=== PATIENT | male | born 1980 | race Caucasian/White ===

== ENCOUNTER 2023-10-27 16:14 | Emergency (ER) | payer OTHER, SELFPAY ==
--- NOTE | ~2023-10-27 | CT_ITS ---
EXAMINATION: CT ABDOMEN AND PELVIS WITH CONTRAST CLINICAL INFORMATION: Pain. COMPARISON: 10/20/2014 TECHNIQUE: Multidetector volumetric images were obtained from the superior aspect of the liver through the pubic symphysis following administration 85 mL of Omnipaque 350 intravenous contrast. Sagittal and coronal reformatted images were obtained on the technologist's workstation. Oral contrast: No This CT examination was performed using dose optimization techniques as appropriate, variously including the following: *Automated exposure control *Adjustment of mA and/or kV according to patient size (this includes techniques or standardized protocols for targeted exams where dose is matched to indication/reason for exam; i.e. extremities or head) *Use of iterative reconstruction technique DLP: 568 mGy-cm FINDINGS: LUNG BASES: The visualized lung bases are unremarkable. LIVER, GALLBLADDER, AND BILIARY TREE: There are scattered hepatic hypodensities measuring up to 2.3 cm left lobe the liver some too small to characterize but all likely to represent cysts. There is no intrahepatic biliary duct dilatation. The gallbladder is unremarkable with no evidence of radiopaque gallstones, gallbladder wall thickening, or obvious pericholecystic inflammatory changes. PANCREAS: Unremarkable. SPLEEN: Unremarkable. ADRENAL GLANDS: Unremarkable. KIDNEYS AND URETERS: The kidneys are normal in size, shape, and attenuation. No hydronephrosis, hydroureter, or calculi seen. No perinephric stranding. There is a 2.5 cm cyst mid to lower pole left kidney. BLADDER: Unremarkable. GASTROINTESTINAL TRACT: There is distal sigmoid and rectal thickening. The appendix is visualized and is within normal limits. ABDOMINAL WALL: No significant hernia is appreciated. LYMPH NODES: Normal. VASCULAR: Unremarkable. PELVIC VISCERA: Unremarkable. OSSEOUS STRUCTURES: Unremarkable. CT/CT abdomen pelvis w IV con IMPRESSION: 1. Thickening of the distal sigmoid and rectal wall which may be consistent with proctocolitis. 2. Scattered hepatic hypodensities some too small to characterize but all likely to represent cysts. 3. 2.5 cm cyst mid to lower pole left kidney. Fleischner guidelines were followed.
[2023-10-27 17:19] VITALS: BP 150/103; PULSE 93; RESP 16; TEMP 36.7; O2SAT 98; BMI 30.3
[2023-10-27 17:44] LABS: MANUAL DIFF FLAG NO
[2023-10-27 17:46] LABS: Basophils Absolute Auto 0.1 X10*3/uL (0.0-0.2); Basophils Percent Auto 0.7 % (0-2); Eosinophils Absolute Auto 0.4 X10*3/uL (0.0-0.4); Hematocrit 45.6 % (42.0-52.0); Hemoglobin 15.5 g/dl (14.0-18.0); Imm Gran Abs Auto 0.03 X10*3/uL (0.00-0.03); Imm Gran Pct Auto 0.4 % (0.0-0.4); Lymphocytes Absolute Auto 1.4 X10*3/uL (1.2-4.9); Lymphocytes Percent Auto 16.7 % (20-40); Mean Corpuscular Hemoglobin 29.8 pg (27.0-33.0); Mean Corpuscular Volume 87.5 fL (80.0-98.0); Mean Platelet Volume 9.7 fL (9.4-12.4); Monocytes Absolute Auto 0.4 X10*3/uL (0.1-1.2); Monocytes Percent Auto 4.5 % (2-11); Neutrophils Percent Auto 72.7 % (45-73); Platelet Count 306 X10*3/uL (160-400); Red Blood Count 5.21 X10*6/uL (4.60-5.80); Red Cell Distribution Width 13.2 % (11.0-16.0); White Blood Count 8.3 X10*3/uL (4.8-10.8)
[2023-10-27 18:01] LABS: Alanine Aminotransferase 21 U/L (0-40); Albumin Level 4.4 g/dL (3.5-5.0); Alkaline Phosphatase 110 U/L (39-117); Anion Gap 13 (12-20); Aspartate Amino Transferase 28 U/L (5-37); Bilirubin Total 0.5 mg/dL (0.0-1.0); Blood Urea Nitrogen 13 mg/dL (9-16); Calcium 9.5 mg/dL (8.4-10.2); Carbon Dioxide 27 mmol/L (22-29); Chloride 105 mmol/L (96-108); Creatinine Clr Calc Pharmacy 102.7; Estimated Glomerular Filt Rate > 60; Glucose Random 97 mg/dL (60-115); Lipase 34 U/L (8-78); Potassium 3.6 mmol/L (3.3-5.1); Sodium 141 mmol/L (135-145); Total Protein 7.3 g/dL (6.5-8.0)
--- NOTE | 2023-10-27 19:17 | ED.GENADULT ---
HPI - General Adult General Chief complaint: General Medical Stated complaint: lower abd pain, bloody stools Time Seen by Provider: 10/27/23 23:12 Source: patient Mode of arrival: ambulatory History of Present Illness ED Provider: Dr. Navarrete [facility] narrative: 43-year-old male with history of anxiety and depression presents with 1 week of experiencing abdominal discomfort in the morning and then having leakage mucousy blood-tinged discharge from the rectum while passing flatus in the shower and then reports that he has noticed it mixed with his stool and seems to decreased throughout the day. He denies any history of constipation or food allergies and states that this is never happened before. He denies any personal history of colon disorders and denies any family history of inflammatory bowel disease or colon CA. patient then also began developing left lower quadrant discomfort approximately 2 days ago, none of the symptoms have been associated with any fever, chills, nausea or vomiting. Related Data Previous Rx's ?Medication ?Instructions ?Recorded amoxicillin 875 mg-potassium 1 tab PO BID 10 days #20 tabs 10/28/23 clavulanate 125 mg tablet Allergies Allergy/AdvReac Type Severity Reaction Status Date / Time No Known Allergies Allergy Verified 10/27/23 17:22 [No Known Allergies*] Review of Systems Review of Systems: Pertinent positives and negatives as stated in HPI [facility] Past Medical History Source: nursing notes reviewed Social History Social History Alcohol intake: never Smoked in Last 30 Days: No Use of substances other than those prescribed or required for medical reasons: No Advance Directives: No Advance Directives Information Provided: No Physical Exam ED Vital Signs: Vital Signs - 24 hr 10/27/23 17:19 10/27/23 21:56 10/28/23 00:19 Temperature 98.1 F 98.5 F 97.5 F Pulse Rate 93 81 85 Respiratory Rate 16 18 18 Blood Pressure 150/103 H 156/105 H 157/104 H Pulse Oximetry 98 98 98 Oxygen Delivery Method Room Air Room Air Room Air 10/28/23 04:16 Temperature 98.9 F Pulse Rate 81 Respiratory Rate 17 Blood Pressure 156/98 H Pulse Oximetry 98 Oxygen Delivery Method Room Air BMI result Body Mass Index 30.3 VITAL SIGNS: Reviewed. GENERAL: Well developed, well nourished, in no acute distress. HEAD: Normocephalic/atraumatic EYES: PERRLA, EOMI LUNGS: Normal breath sounds. No adventitious sounds or accessory muscle use. SpO2<98> CARDIOVASCULAR: Regular rate and rhythm without noted murmurs ABDOMEN: Soft, non-tender, non-distended with bowel sounds. MUSCULOSKELETAL: No tenderness, deformities, or effusions noted on gross inspection. EXTREMITIES: No cyanosis, clubbing or edema. SKIN: Inspection of the skin reveals no rashes NEUROLOGIC: Alert and oriented x 4. Strength and sensation to light touch were grossly intact x 4. Course Course Course Narrative: This is an RME: Additional HPI, ROS, PE not included below will be deferred to primary provider. RME assessment and note performed by: Meme Reeder PA-C This is a 43-year-old male who presents emergency department with complaints of bright red blood in stool for the last week. Also endorsing diffuse abdominal pain, endorsing nausea, no vomiting. Patient mildly hypertensive otherwise all vital signs within normal limits. Plan: Labs, further ER evaluation needed Medications Administered Discontinued Medications Generic Name Dose Route Start Last Admin Trade Name Freq PRN Reason Stop Dose Admin Iohexol 85 ml 10/28/23 01:30 10/28/23 01:30 Iohexol 350 Mg/Ml 100 Ml Infus..Btl IV 10/28/23 01:31 85 ml ONCE ONE Administration Medical Decision Making Medical Decision Making [facility] Narrative: 43-year-old male with history and clinical presentation, DDX: Hemorrhoidal bleeding, constipation, intra-abdominal mass felt to be much less likely, no other concerns for intra-abdominal infection, possible food allergy. I reviewed all investigations and hematologic indices are negative for leukocytosis/anemia/thrombocytopenia. Chemistry indices are negative for NIKKI/electrolyte or liver enzyme derangements and CT scan does describe findings suggestive proctocolitis. Will treat patient with antibiotics and give strict instructions for follow-up with primary care doctor and referral for Gastroenterology. Differential Diagnosis Differential Diagnoses: The differential diagnosis associated with the presentation includes Please see the discussion above Admission/Observation Consideration of admission/observation: Escalation of care including admission/observation considered Please see the discussion above Lab Data [facility] Lab Attestation statement: I reviewed the patient's lab results. Please see the discussion above 10/27/23 17:39 10/27/23 17:38 Labs: Lab Results 10/27/23 10/27/23 Range/Units 17:38 17:39 WBC 8.3 (4.8-10.8) X10*3/uL RBC 5.21 (4.60-5.80) X10*6/uL Hgb 15.5 (14.0-18.0) g/dl Hct 45.6 (42.0-52.0) % MCV 87.5 (80.0-98.0) fL MCH 29.8 (27.0-33.0) pg MCHC 34.0 (31.0-36.0) g/dl RDW 13.2 (11.0-16.0) % Plt Count 306 (160-400) X10*3/uL MPV 9.7 (9.4-12.4) fL Immature Gran % (Auto) 0.4 (0.0-0.4) % Neut % (Auto) 72.7 (45-73) % Lymph % (Auto) 16.7 L (20-40) % [place] % (Auto) 4.5 (2-11) % Eos % (Auto) 5.0 H (0-4) % Baso % (Auto) 0.7 (0-2) % Lymph # (Auto) 1.4 (1.2-4.9) X10*3/uL [place] # (Auto) 0.4 (0.1-1.2) X10*3/uL Eos # (Auto) 0.4 (0.0-0.4) X10*3/uL Baso # (Auto) 0.1 (0.0-0.2) X10*3/uL Abs Immat Gran (auto) 0.03 (0.00-0.03) X10*3/uL Absolute Neuts (auto) 6.0 (2.0-8.3) x10*3/uL Absolute Nucleated RBC 0.000 (0.0-0.012) X10*3/uL Nucleated RBC % (auto) 0.0 (0.0-0.2) /100WBC Sodium 141 (135-145) mmol/L Potassium 3.6 (3.3-5.1) mmol/L Chloride 105 (96-108) mmol/L Carbon Dioxide 27 (22-29) mmol/L Anion Gap 13 (12-20) BUN 13 (9-16) mg/dL Creatinine 0.96 (0.5-1.4) mg/dL Estim Creat Clear Calc 102.7 Estimated GFR > 60 Random Glucose 97 (60-115) mg/dL Calcium 9.5 (8.4-10.2) mg/dL Total Bilirubin 0.5 (0.0-1.0) mg/dL AST 28 (5-37) U/L ALT 21 (0-40) U/L Alkaline Phosphatase 110 (39-117) U/L Total Protein 7.3 (6.5-8.0) g/dL Albumin 4.4 (3.5-5.0) g/dL Lipase 34 (8-78) U/L Radiology Impression Discussion of test interpretation with radiology: I have reviewed the radiologist's reading. Radiologist Impression: Please see the discussion above Critical Care Time Critical Care Time Critical Care Time: Yes Total Critical Care Time: 30 Attestation: I personally attest to this time spent taking care of the patient. Discharge Plan Discharge Clinical Impression: Proctocolitis Patient Disposition: Home, Self-Care Instructions: Colitis (ED) Additional Instructions: 1. Complete the course of antibiotics as prescribed. 2. Also strongly recommend follow-up with your primary care doctor and discussion for referral to Gastroenterology for further evaluation of other etiologies of the inflammation of your colon that you are experiencing. Return to the emergency room for any worsening of symptoms, uncontrolled bleeding, fevers, chills Prescriptions: New amoxicillin-pot clavulanate 875-125 mg tablet 1 tab PO BID 10 Days Qty: 20 0RF Referrals: Vickie Luong MD [Primary Care Provider] - Print Language: [place]
[2023-10-27 21:56] VITALS: BP 156/105; PULSE 81; RESP 18; TEMP 36.9; O2SAT 98
[2023-10-28 00:19] VITALS: BP 157/104; PULSE 85; RESP 18; TEMP 36.4; O2SAT 98
[2023-10-28] MEDS: iohexoL 350 MG/ML 100 ML INFUS..BTL 85 ML IV (01:30)
[2023-10-28 04:16] VITALS: BP 156/98; PULSE 81; RESP 17; TEMP 37.2; O2SAT 98
[2023-10-28] MEDS: Amoxicillin/Potassium Clav 875 MG TABLET PO (04:50)
[2023-10-28 04:54] VITALS: BP 156/98; PULSE 81; RESP 17; TEMP 37.2; O2SAT 98
== END 2023-10-28 04:55 | disposition home or self-care (01) ==
PROVIDERS: Emergency Provider Student in an Organized Health Care Education/Training Program; PCP Internal Medicine
DX: K51.30 Ulcerative (chronic) rectosigmoiditis without complications (principal); R10.30 Lower abdominal pain, unspecified
CPT/HCPCS: 36415; 74177; 80053; 83690; 85025; 99284; Q9967